=== PATIENT | female | born 1970 | race Caucasian/White ===

== ENCOUNTER 2017-07-27 00:17 | Emergency (ER) | payer OTHER ==
[~2017-07-27] VITALS: Ht 167.6 cm; Wt 118.1 kg
[~2017-07-27 00:17] MED LIST: ALBU-136 IH; BECL0.089 IH; MONT10TA35 PO
[2017-07-27 00:25] VITALS: BP 158/76
--- NOTE | 2017-07-27 00:28 | NUR ---
PT. AMBULATED TO ER BED 10
[2017-07-27] MEDS ORDERED: ALBUTEROL SULFATE/IPRATROPIU 3 ML SOL IH ONE (00:30)
--- NOTE | 2017-07-27 00:30 | NUR ---
46 Y/O F W/C/O SOB/WHEEZES X YESTERDAY AFTERNOON. MED HX ASTHMA, PREDIABETIC. WHEEZES NOTED BILATERAL, RT CALLED AT BEDSIDE. ER MD MADE AWARE.
--- NOTE | 2017-07-27 00:45 | NUR ---
RT AT BEDSIDE
--- NOTE | 2017-07-27 01:20 | NUR ---
ER MD COURTNEY EVALUATING PT AT BEDSIDE
[2017-07-27] MEDS ORDERED: predniSONE 20 MG TAB PO ONE (01:35)
--- NOTE | 2017-07-27 01:42 | NUR ---
FLU SWAB COLLECTED AND SET TO LAB.
[2017-07-27] MEDS ORDERED: ALBUTEROL 0.083% 2.5 MG/3 ML NEBU INH ONE (02:25)
[2017-07-27 02:51] VITALS: BP 127/79
--- NOTE | 2017-07-27 02:51 | NUR ---
Patient discharged with v/s stable. Written and verbal after care instructions given and explained. Patient alert, oriented and verbalized understanding of instructions. Ambulatory with steady gait. All questions addressed prior to discharge. ID band removed. Patient advised to follow up with PMD. Rx of TAMIFLU,VENTOLIN HFA given. Patient educated on indication of medication including possible reaction and side effects. Opportunity to ask questions provided and answered.
== END 2017-07-27 02:51 | disposition home or self-care (01) ==
LOC: MED 00:17
DX: J10.1 Influenza due to other identified influenza virus with other respiratory manifestations (principal); J45.901 Unspecified asthma with (acute) exacerbation; E11.9 Type 2 diabetes mellitus without complications; F17.210 Nicotine dependence, cigarettes, uncomplicated; Z79.899 Other long term (current) drug therapy; Z91.041 Radiographic dye allergy status
CPT/HCPCS: 36415; 87804; 94640; 99284; J7512; J7613; J7620

== ENCOUNTER 2019-04-18 02:44 | Emergency (ER) | payer OTHER ==
[~2019-04-18] VITALS: Ht 167.6 cm; Wt 120.8 kg
[2019-04-18 02:52] VITALS: BP 144/101
--- NOTE | 2019-04-18 03:01 | NUR ---
AMBULATED TO BED 02 WITH STEADY GAIT IN UPRIGHT POSITION. ENDORSED TO EDSON AGUILAR.
--- NOTE | 2019-04-18 03:09 | NUR ---
48 Y/O FEMALE PRESENTS TO ED, C/O OF COUGHING. PT STATES COUGHING FOR PAST 2 WEEKS WITH SPUTUM PROGRESSED THIS PAST WEEK WITH DRY COUGHING ALONG WITH LATERAL PAIN ALONG RIBS 10/10. PT DENIES ANY CHEST PAIN. HAD SOB BUT TOOK SYMBICORT INHALER AT MIDNIGHT WITH RELIEF. PT DENIES ANY N/V/D. PT STABLE. SPO2 97% AT ROOM AIR. LUNG SOUNDS BILAT CLEAR. ERMD AWARE. WILL CONTINUE TO MONITOR.
[2019-04-18] MEDS ORDERED: ALBUTEROL SULFATE/IPRATROPIU 3 ML SOL IH ONE (05:10)
[2019-04-18] MEDS ORDERED: DEXAMETHASONE 4 MG/ML VIAL PO ONE ×2 (05:10→06:25)
[2019-04-18 06:34] VITALS: BP 130/90
--- NOTE | 2019-04-18 06:34 | NUR ---
Patient discharged with v/s stable. Written and verbal after care instructions given and explained. Patient alert, oriented and verbalized understanding of instructions. Ambulatory with steady gait. All questions addressed prior to discharge. ID band removed. Patient advised to follow up with PMD. Rx of AZITHROMYCIN given. Patient educated on indication of medication including possible reaction and side effects. Opportunity to ask questions provided and answered.
== END 2019-04-18 06:34 | disposition home or self-care (01) ==
LOC: MED 02:44
DX: J45.909 Unspecified asthma, uncomplicated (principal); E11.9 Type 2 diabetes mellitus without complications; F17.200 Nicotine dependence, unspecified, uncomplicated; Z79.899 Other long term (current) drug therapy
CPT/HCPCS: 71045; 94640; 99283; J1100; J7620; Q0092

== ENCOUNTER 2020-08-11 10:32 | Emergency (ER) | payer OTHER, SELFPAY ==
[~2020-08-11] VITALS: Ht 167.6 cm; Wt 113.4 kg
[2020-08-11 10:40] VITALS: BP 138/80
--- NOTE | 2020-08-11 10:45 | NUR ---
49 YO F BIB SELF FOR C/C OF SOB/COUGH X2 DAYS FROM ASTHMA EXACERBATION. COUGH IS PRODUCTIVE WITH GREEN SPUTUM. WHEEZES AUSCULATED THROUGHOUT BILATERAL LUNG RED. S1S2 HEARD. DENIES CP, FEVER, AND CONTACT WITH COVID. PT STATES "THIS FEELS LIKE MY NORMAL ASTHMA EXACERBATION." PT REPORTS PO STEROIDS AND BREATHING TX NORMALLY RELIEVE HER SOB, AT HOME INH NOT RELIEVING SOB. PT PLACED ON PULSE OX. BED LOCKED AND IN LOWEST POSITION. SIDE RAILS X1. MED HX: ASTHMA
[2020-08-11] MEDS ORDERED: ALBUTEROL HFA MDI 90 MCG/ACTUATION 8 GM INH ONE (10:55)
[2020-08-11] MEDS ORDERED: predniSONE 20 MG TAB PO ONE (10:55)
--- NOTE | 2020-08-11 11:09 | NUR ---
RT AT BEDSIDE FOR INH TX
--- NOTE | 2020-08-11 11:15 | NUR ---
RAD AT BEDSIDE
--- NOTE | 2020-08-11 11:27 | NUR ---
NOVEL SWAB COLLECTED AND TAKEN TO LAB
[2020-08-11] MEDS ORDERED: PRON INH (11:34)
[2020-08-11] MEDS ORDERED: PRED50TA2 PO (11:34)
[2020-08-11] MEDS ORDERED: AZIT250T3 PO (11:34)
--- NOTE | 2020-08-11 11:40 | NUR ---
PT REPORTS DECREASED SOB POST INH TX
[2020-08-11 11:45] VITALS: BP 138/80
--- NOTE | 2020-08-11 11:45 | NUR ---
Patient discharged with v/s stable. Written and verbal after care instructions given and explained. Patient alert, oriented and verbalized understanding of instructions. Ambulatory with steady gait. All questions addressed prior to discharge. ID band removed. Patient advised to follow up with PMD. Rx of AZITHROMYCIN, PREDNISONE, ALBUTEROL given. Patient educated on indication of medication including possible reaction and side effects. Opportunity to ask questions provided and answered.
== END 2020-08-11 11:45 | disposition home or self-care (01) ==
LOC: MED 10:32
DX: J45.901 Unspecified asthma with (acute) exacerbation (principal); J18.9 Pneumonia, unspecified organism; E11.9 Type 2 diabetes mellitus without complications; F17.210 Nicotine dependence, cigarettes, uncomplicated; Z20.822 Contact with and (suspected) exposure to COVID-19
CPT/HCPCS: 71045; 94664; 99284; J7512; U0003

== ENCOUNTER 2021-05-07 14:50 | Emergency (ER) | payer OTHER, SELFPAY ==
[~2021-05-07] VITALS: Ht 167.6 cm; Wt 112.9 kg
[~2021-05-07 14:50] MED LIST changes: +ALBU-118 IH; -ALBU-136 IH; +AZIT250T3 PO; +PRED50TA2 PO; +PRON INH
[2021-05-07 14:57] VITALS: BP 157/92
[2021-05-07] MEDS ORDERED: KETOROLAC 30 MG/ML VIAL IM ONE (15:20)
--- NOTE | 2021-05-07 15:42 | NUR ---
PT AMBULATED TO BED 4
--- NOTE | 2021-05-07 16:02 | NUR ---
PT PLACED IN SLING
[2021-05-07] MEDS ORDERED: CYCL-711 PO (16:12)
[2021-05-07] MEDS ORDERED: LID5T TP (16:12)
[2021-05-07] MEDS ORDERED: IBUP-2213 PO (16:12)
--- NOTE | 2021-05-07 16:48 | NUR ---
Patient discharged with v/s stable. Written and verbal after care instructions ABOUT TENDINITIS, SHOULDER SPRAIN given and explained. Patient alert, oriented and verbalized understanding of instructions. Ambulatory with steady gait. All questions addressed prior to discharge. ID band removed. Patient advised to follow up with PMD. Rx of FLEXERIL, IBUPROFEN, LIDOCAINE given. Patient educated on indication of medication including possible reaction and side effects. Opportunity to ask questions provided and answered.
== END 2021-05-07 16:48 | disposition home or self-care (01) ==
LOC: MED 14:50
DX: S46.911A Strain of unspecified muscle, fascia and tendon at shoulder and upper arm level, right arm, initial encounter (principal); M77.8 Other enthesopathies, not elsewhere classified; J45.909 Unspecified asthma, uncomplicated; E11.9 Type 2 diabetes mellitus without complications; Z79.899 Other long term (current) drug therapy; W01.0XXA Fall on same level from slipping, tripping and stumbling without subsequent striking against object, initial encounter; Y93.89 Activity, other specified; Y92.89 Other specified places as the place of occurrence of the external cause; Y99.8 Other external cause status
CPT/HCPCS: 73060; 96372; 99283; J1885

== ENCOUNTER 2021-05-10 14:24 | Emergency (ER) | payer OTHER, SELFPAY ==
[~2021-05-10] VITALS: Ht 167.6 cm; Wt 112.9 kg
[~2021-05-10 14:24] MED LIST changes: +CYCL-711 PO; +IBUP-2213 PO; +LID5T TP
[2021-05-10 14:50] VITALS: BP 157/90
[2021-05-10 15:09] VITALS: BP 157/90
--- NOTE | 2021-05-10 15:09 | NUR ---
NO NURSING INTERVENTIONS DONE NO COMPLETE ASSESSMENT NEEDED.
--- NOTE | 2021-05-10 15:11 | NUR ---
Patient discharged with v/s stable. Written and verbal after care instructions given TENDINITIS and explained. Patient verbalized understanding. Ambulatory with steady gait. All questions addressed prior to discharge. Advised to follow up with PMD.
== END 2021-05-10 15:11 | disposition home or self-care (01) ==
LOC: MED 14:24
DX: M25.511 Pain in right shoulder (principal); J45.909 Unspecified asthma, uncomplicated; E11.9 Type 2 diabetes mellitus without complications; Z79.899 Other long term (current) drug therapy; Z79.1 Long term (current) use of non-steroidal anti-inflammatories (NSAID); Z79.2 Long term (current) use of antibiotics; Z79.51 Long term (current) use of inhaled steroids; Z91.041 Radiographic dye allergy status
CPT/HCPCS: 99282

== ENCOUNTER 2022-04-28 14:02 | Emergency (ER) | payer OTHER ==
[~2022-04-28] VITALS: Ht 162.6 cm; Wt 115.8 kg
[2022-04-28 14:04] VITALS: BP 160/91
--- NOTE | 2022-04-28 14:08 | NUR ---
PT AMB TO BED 7.
--- NOTE | 2022-04-28 14:20 | NUR ---
51/F WALKED IN C/O COUGH, SOB, RUNNY NOSE, AND SORE THROAT ONSET 2 DAYS. AAO4, AMBULATORY, AFEBRILE AT TRIAGE. PMH: ASTHMA
--- NOTE | 2022-04-28 14:35 | NUR ---
COVID AND FLU SWAB COLLECTED AND SENT TO LAB
[2022-04-28] MEDS ORDERED: predniSONE 20 MG TAB PO ONE (14:45)
[2022-04-28] MEDS: ALBUTEROL SULFATE/IPRATROPIU 3 ML SOL IH SCH ×2 (15:03→15:04)
[2022-04-28] MEDS ORDERED: PRED20TA5 PO (15:31)
[2022-04-28] MEDS ORDERED: PRON INH (15:31)
== END 2022-04-28 15:45 | disposition home or self-care (01) ==
LOC: MED 14:02
DX: J45.901 Unspecified asthma with (acute) exacerbation (principal); Z20.822 Contact with and (suspected) exposure to COVID-19; E11.9 Type 2 diabetes mellitus without complications; F17.200 Nicotine dependence, unspecified, uncomplicated; Z71.6 Tobacco abuse counseling; Z79.899 Other long term (current) drug therapy; Z79.1 Long term (current) use of non-steroidal anti-inflammatories (NSAID); Z79.2 Long term (current) use of antibiotics; Z91.041 Radiographic dye allergy status
CPT/HCPCS: 87426; 87804; 94640; 99283; J7512